=== PATIENT | male | born 1955 | race Caucasian/White ===

== ENCOUNTER → 2017-05-29 | Outpatient (CLI) | payer OTHER ==
--- NOTE | 2017-05-29 15:57 | PCVCIMAG ---
EXAM: AORTOILIAC DUPLEX INDICATION: Peripheral arterial disease FINDINGS: AORTA: Suprarenal aorta measures maximum diameter of 2.9 cm. There is not a fusiform infrarenal aortic aneurysm. The infrarenal aorta measures maximum diameter of 2.4 cm. No aortic stenosis. RIGHT COMMON ILIAC ARTERY: Maximum diameter is 1.1 cm. No significant stenosis. RIGHT EXTERNAL ILIAC ARTERY: No significant stenosis. LEFT COMMON ILIAC ARTERY: Maximum diameter is 1.2 cm. No significant stenosis. LEFT EXTERNAL ILIAC ARTERY: No significant stenosis. IMPRESSION: No abdominal aortic aneurysm. No aortoiliac stenosis seen. LOC:[id number]
== END ==
LOC: PCVCIMAG 11:16
PROVIDERS: ATTEND Internal Medicine Cardiovascular Disease
DX: I73.9 Peripheral vascular disease, unspecified (principal); I25.10 Atherosclerotic heart disease of native coronary artery without angina pectoris; I10 Essential (primary) hypertension; E78.5 Hyperlipidemia, unspecified; R19.07 Generalized intra-abdominal and pelvic swelling, mass and lump; R09.89 Other specified symptoms and signs involving the circulatory and respiratory systems
CPT/HCPCS: 80061; 93005; 93978; G0463

== ENCOUNTER → 2017-08-06 | Outpatient (CLI) | payer OTHER ==
--- NOTE | 2017-08-06 11:24 | PCVCIMAG ---
APPROVED REPORT Laterality: Bilateral Indications Stenosis Doppler Spectral Velocity Analysis PSV / EDVPSV / EDV ECA (R) 159 / 19 cm/sECA (L) 202 / 27 cm/s dICA (R) 63 / 20 cm/sdICA (L) Rock (R) 94 / 33 cm/smICA (L) pICA (R) 151 / 35 cm/spICA (L) 0 / 0 cm/s Bulb (R) 88 / 18 cm/sBulb (L) 0 / 0 cm/s dCCA (R) 113 / 27 cm/sdCCA (L) 62 / 9 cm/s mCCA (R) 103 / 23 cm/smCCA (L) 87 / 14 cm/s Vert (R) 42 / 12 cm/sVert (L) 58 / 19 cm/s ICA/CCA ICA/CCA Findings The right carotid bulb has moderate calcified plaque. The right proximal internal carotid artery shows 40-50% stenosis. The right common carotid artery shows no significant stenosis. The right external carotid artery shows <50% stenosis. The left carotid bulb has severe plaque. The left proximal internal carotid artery chronic occlusion The left common carotid artery shows no significant stenosis. The left external carotid artery shows <50% stenosis. Conclusion 1. Right internal carotid artery stenosis (40-50%) 2. Chronic left internal carotid occlusion 3. Antegrade vertebral flow
== END | disposition home or self-care (01) ==
LOC: PCVCIMAG 10:28
PROVIDERS: ATTEND Internal Medicine Cardiovascular Disease
DX: I65.23 Occlusion and stenosis of bilateral carotid arteries (principal); I10 Essential (primary) hypertension; I25.10 Atherosclerotic heart disease of native coronary artery without angina pectoris; E78.5 Hyperlipidemia, unspecified
CPT/HCPCS: 93880

== ENCOUNTER → 2018-05-01 | Outpatient (CLI) | payer OTHER | END | disposition home or self-care (01) | LOC: PCVCIMAG 10:19 | DX: Z01.818 Encounter for other preprocedural examination (principal); I25.10 Atherosclerotic heart disease of native coronary artery without angina pectoris; I10 Essential (primary) hypertension; E78.5 Hyperlipidemia, unspecified | CPT/HCPCS: 93325; 93351 ==

== ENCOUNTER → 2018-11-06 | Outpatient (CLI) | payer OTHER ==
--- NOTE | 2018-11-06 15:06 | PCVCIMAG ---
APPROVED REPORT Laterality: Bilateral Indications Stenosis Doppler Spectral Velocity Analysis PSV / EDVPSV / EDV ECA (R) 163 / 18 cm/sECA (L) 252 / 26 cm/s dICA (R) 62 / 28 cm/sdICA (L) 0 / 0 cm/s Rock (R) 165 / 50 cm/smICA (L) 0 / 0 cm/s pICA (R) 151 / 46 cm/spICA (L) 0 / 0 cm/s Bulb (R) 90 / 18 cm/sBulb (L) 80 / 13 cm/s dCCA (R) 89 / 18 cm/sdCCA (L) 97 / 16 cm/s mCCA (R) 107 / 20 cm/smCCA (L) 91 / 12 cm/s Vert (R) 52 / 16 cm/sVert (L) 71 / 27 cm/s ICA/CCA 1.85ICA/CCA 0.00 Findings The right carotid bulb has moderate plaque. The right proximal internal carotid artery shows 40-50% stenosis. The right common carotid artery shows no significant stenosis. The right external carotid artery shows no significant stenosis. The left carotid bulb has severe plaque. The left proximal internal carotid artery shows chronic occlusion The left common carotid artery shows no significant stenosis. The left external carotid artery shows >50% stenosis. Conclusion 1. Right internal carotid artery stenosis (40-50%) 2. Chronic left internal carotid artery occlusion 3. Antegrade vertebral flow Similar to August,
== END | disposition home or self-care (01) ==
LOC: PCVCIMAG 13:43
PROVIDERS: ATTEND Internal Medicine Cardiovascular Disease
DX: I65.23 Occlusion and stenosis of bilateral carotid arteries (principal); I10 Essential (primary) hypertension; E78.5 Hyperlipidemia, unspecified; I77.9 Disorder of arteries and arterioles, unspecified
CPT/HCPCS: 93880

== ENCOUNTER → 2019-08-12 | Outpatient (CLI) | payer BC, OTHER ==
--- NOTE | 2019-08-12 11:16 | PCVCIMAG ---
EXAM: BILATERAL CAROTID DUPLEX INDICATION: Carotid Occlusive Disease. FINDINGS: Doppler Measurements (centimeters per second): RIGHT: Peak CCA-114, Peak ECA-119, Diastolic ICA-43, Peak ICA-143, ICA/CCA Ratio-1.2. LEFT: Peak CCA-102, Peak ECA-280, Diastolic ICA-0, Peak ICA-0, ICA/CCA Ratio-0. RIGHT CAROTID: The carotid bulb has moderate plaque. The proximal internal carotid artery shows 40-50% stenosis. The common carotid artery shows no significant stenosis. The external carotid artery shows no significant stenosis. LEFT CAROTID: The carotid bulb has severe plaque. Chronic occlusion cervical internal carotid artery. The common carotid artery shows no significant stenosis. The external carotid artery shows 75% stenosis. Antegrade flow in both vertebral arteries. IMPRESSION: 40-50% stenosis of the right internal carotid artery with moderate plaque. Chronic occlusion cervical left internal carotid artery. No significant change since November 2018 study. LOC:[id number]
== END | disposition home or self-care (01) ==
LOC: PCVCIMAG 09:30
PROVIDERS: ATTEND Internal Medicine Cardiovascular Disease
DX: I65.23 Occlusion and stenosis of bilateral carotid arteries (principal); Z88.8 Allergy status to other drugs, medicaments and biological substances
CPT/HCPCS: 93880

== ENCOUNTER → 2019-11-18 | Outpatient (CLI) | payer BC ==
--- NOTE | 2019-11-18 12:59 | PCVCIMAG ---
APPROVED REPORT Study performed: 11/18/2019 11:39:51 Exam: Stress Echocardiogram Indication: Hyperlipidemia, Hypertension Patient Location: Echo lab Stress Nurse: Shena Hernadez RN Status: routine Ht: 5 ft 9 in HR: 73 bpm BP: 112/80 mmHg Rhythm: NSR Medical History Medical History: Carotid Disease, TIA Procedure The patient underwent an Exercise Stress Test using the Joselo Protocol. Blood pressure, heart rate, and EKG were monitored. An Echocardiogram was performed by topography technician in four stages in quad fashion. At peak stress, four selected images were obtained and placed side by side with resting images for comparison. Stress Test Details Stress Test: Exercise stress testing was performed using a Joselo protocol. HR Resting HR: 73 bpmMax Heart Rate (APMHR): 157 bpm Max HR Achieved: 139 bpmTarget HR (85% APMHR): 133 bpm % of APMHR: 88 Recovery HR: 139 bpm HR response to stress: Normal HR response to stress BP Resting BP: 112/80 mmHg Max BP: 150/60 mmHg Recovery BP: 112/66 mmHg BP response to stress: Normal blood pressure response to stress. ECG Resting ECG: Sinus Rhythm Stress ECG: Sinus Rhythm Recovery ECG: Sinus Rhythm Clinical Reason for Termination: Maximal effort Exercise duration: 9 min 44 sec Highest Stage Achieved: Stage 4: 4.2 mph at 16% grade. Exercise capacity: 12.50 METs Overall Exercise Capacity for Age: Good Pre-Stress Echo The resting Echocardiogram showed normal left ventricular contractility with an estimated Ejection Fraction of about 55-60%. Normal wall motion in all segments on baseline images. Post-Stress Echo The stress Echocardiogram showed normal left ventricular contractility with an estimated Ejection Fraction of about 60-65%. Normal augmentation of wall motion in all segments on post stress images. Clinical No clinical or ECG evidence for ischemia. Conclusion Clinical Response: Non-ischemic Exercise Capacity: Average Stress ECG Response: Non-ischemic Stress Echo Images: Non-ischemic The left ventricle is normal in size and wall thickness in both the rest and stress images. No significant valvular abnormalities. <Conclusion> The left ventricle is normal in size and wall thickness in both the rest and stress images. No significant valvular abnormalities.
== END | disposition home or self-care (01) ==
LOC: PCVCIMAG 11:42
PROVIDERS: ATTEND Internal Medicine Cardiovascular Disease
DX: I25.10 Atherosclerotic heart disease of native coronary artery without angina pectoris (principal); I10 Essential (primary) hypertension
CPT/HCPCS: 93325; 93351

== ENCOUNTER → 2022-02-02 | Outpatient (CLI) | payer BC, OTHER ==
--- NOTE | 2022-02-02 14:12 | KCIC ---
XR CHEST 2V INDICATION: BRONCHITIS. New onset of bronchitis x one week. / History: . COMPARISON STUDY: 11/08/2016. FINDINGS: Lungs: Normal lung volume. No pulmonary mass or consolidation. The tracheobronchial tree and hilar st ructures are normal. Pleura: No pleural effusion or pneumothorax. Heart and Mediastinum: The cardiomediastinal silhouette is normal. The great vessels of the thorax ar e normal. Bones and Soft Tissues: Degenerative changes of the spine. IMPRESSION: No acute cardiopulmonary process. Electronically signed by: Demar Oviedo MD (02/02/2022 2:09 PM) [id number]
== END ==
LOC: KCIC 11:20
PROVIDERS: ATTEND Family Medicine
DX: J40 Bronchitis, not specified as acute or chronic (principal); M47.814 Spondylosis without myelopathy or radiculopathy, thoracic region
CPT/HCPCS: 71046